=== PATIENT | female | born 1970 | race American Indian/Alaskan Native ===

== ENCOUNTER 2019-12-02 11:04 | Emergency (ER) | payer OTHER ==
[2019-12-02 13:13] LABS: HCG Qualitative,Urine Negative (Negative)
[2019-12-02 13:18] LABS: Bilirubin,Urine NEG (Negative); Blood,Urine NEG (Negative); Color,Urine Yellow (Yellow); Mucus,Urine 3+ /HPF; Protein,Urine <15 mg/dL mg/dL (Negative)
[2019-12-02] MEDS ORDERED: KETOROLAC 60 MG/2 ML INJ IM ONE (14:25)
--- NOTE | 2019-12-02 14:57 | Emergency Department Report ---
ED Female HPI - General Chief complaint: Abdominal Pain Stated complaint: STOMACH PAIN Time Seen by Provider: 12/02/19 14:02 Source: patient Mode of arrival: Ambulatory Limitations: No Limitations - History of Present Illness Initial comments: Patient is a 49-year-old female presents emergency room with complaints of dysmenorrhea that began 2 days ago. She states her menstrual cycle just began 2 to 3 days ago. She states that she has suprapubic abdominal cramping. She states that for the last several months she has had this pain during every c ycle. She states that she saw [facility] 8 to 9 months ago and was supposed to follow back up but she states that she moved here and did not follow-up. She denies any heavy vaginal bleeding, nausea, vomiting, diarrhea, fever, urinary symptoms, vaginal discharge or irritation, lightheadedness, palpitations, shortness of breath, unexplained weight loss. She states that she has irregular timing of her menstrual cycles but over the last several months they have become painful. She denies any other past medical history. Allergy to penicillin. - Related Data Previous Rx's Medication Instructions Recorded Last Taken Type Naproxen [EC-Naproxen] 500 mg PO BID PRN #14 tablet. 12/02/19 Unknown Rx Allergies Allergy/AdvReac Type Severity Reaction Status Date / Time Penicillins Allergy Shortness Verified 12/02/19 11:51 of Breath ED Review of Systems ROS: Stated complaint: STOMACH PAIN Other details as noted in HPI Comment: All other systems reviewed and negative ED Past Medical Hx - Past Medical History Previous Medical History?: Yes Additional medical history: Polycystic ovary disease - Surgical History Past Surgical History?: No - Social History Smoking Status: Current Every Day Smoker Substance Use Type: None - Medications Home Medications: Home Medications Medication Instructions Recorded Confirmed Last Taken Type Naproxen [EC-Naproxen] 500 mg PO BID PRN #14 tablet. 12/02/19 Unknown Rx ED Physical Exam - General Limitations: No Limitations General appearance: alert, in no apparent distress - Head Head exam: Present: atraumatic, normocephalic - Eye Eye exam: Present: normal appearance - ENT ENT exam: Present: mucous membranes moist - Respiratory Respiratory exam: Present: normal lung sounds bilaterally. Absent: respiratory distress, wheezes, rales, rhonchi, stridor, chest wall tenderness, accessory muscle use, decreased breath sounds, prolonged expiratory - Cardiovascular Cardiovascular Exam: Present: regular rate, normal rhythm, normal heart sounds. Absent: systolic murmur, diastolic murmur, rubs, gallop - GI/Abdominal GI/Abdominal exam: Present: soft, tenderness (suprapubic), normal bowel sounds. Absent: distended, guarding, rebound, rigid - Neurological Exam Neurological exam: Present: alert, oriented X3 - Psychiatric Psychiatric exam: Present: normal affect, normal mood - Skin Skin exam: Present: warm, dry, intact ED Course Vital Signs 12/02/19 11:49 Temperature 98.8 F Pulse Rate 62 Respiratory 14 Rate Blood Pressure 137/83 O2 Sat by Pulse 100 Oximetry ED Medical Decision Making - Medical Decision Making Patient is a 49-year-old female presents emergency room with complaints of dysmenorrhea that began 2 days ago. She states her menstrual cycle just began 2 to 3 days ago. She states that she has suprapubic abdominal cramping. She states that for the last several months she has had this pain during every cycle. She states that she saw [facility] 8 to 9 months ago and was supposed to follow back up but she states that she moved here and did not follow-up. She denies an y heavy vaginal bleeding, nausea, vomiting, diarrhea, fever, urinary symptoms, vaginal discharge or irritation, lightheadedness, palpitations, shortness of breath, unexplained weight loss. She states that she has irregular timing of her menstrual cycles but over the last several months they have become painful. She denies any other past medical history. Allergy to penicillin. Vitals are stable. On exam patient has suprapubic tenderness palpation, no guarding, no rebound, no rigidity, no distension, normal bowel sounds, no peritoneal signs. UA is within normal limits. Urine is negative. Patient given Toradol IM while in the emergency department and symptoms improved. Patient will be referred to [facility] regarding dysmenorrhea. Patient given prescription for naproxen. Advised patient to please take medication as prescribed. Increase your water intake. Follow-up with [facility]. Follow-up with primary care doctor. Return to emergency room for any new or worsening symptoms. - Differential Diagnosis Dysmenorrhea, fibroids, endometriosis, adenomyosis, ovarian cyst, UTI Critical care attestation.: If time is entered above; I have spent that time in minutes in the direct care of this critically ill patient, excluding procedure time. ED Disposition Clinical Impression: Dysmenorrhea Disposition: DC- TO HOME OR SELFCARE Is pt being admited?: No Does the pt Need Aspirin: No Condition: Stable Instructions: Dysmenorrhea (ED) Additional Instructions: please take medication as prescribed. Increase your water intake. Follow-up with [facility]. Follow-up with primary care doctor. Return to emergency room for any new or worsening symptoms. Prescriptions: Naproxen [EC-Naproxen] 500 mg PO BID PRN #14 tablet.dr GREENE Reason: pain Referrals: TERESA GUERRERO MD [Staff Physician] - 2-3 Days [facility] [Provider Group] - 2-3 Days [facility], [LAB/CONTRACT] - 2-3 Days ALEKSANDR PIMENTEL MD [Staff Physician] - 2-3 Days Time of Disposition: 14:56 Print Language: GUYANESE
[2019-12-02 15:10] VITALS: BP 139/85
== END 2019-12-02 15:11 | disposition home or self-care (01) ==
LOC: ED 11:04
DX: N94.6 Dysmenorrhea, unspecified (principal); F17.200 Nicotine dependence, unspecified, uncomplicated; Z79.899 Other long term (current) drug therapy; Z88.0 Allergy status to penicillin
CPT/HCPCS: 81001; 81025; 99282; J1885